=== PATIENT | male | born 1960 | race Caucasian/White ===

== ENCOUNTER 2022-12-23 06:00 | Day surgery (SDC) | payer OTHER ==
[~2022-12-23] VITALS: Ht 182.9 cm; Wt 90.7 kg
[~2022-12-23 06:00] MED LIST: GOCOVRI68.5 MG PO; NEUPRO1 EAC5 TOP; RYTARY ER 23.71 EACH PO; SINEMET 25-1001 EACH PO
[2022-12-23] MEDS ORDERED: TRAMADOL HCL50 MG PO (08:57)
[2022-12-23] MEDS ORDERED: KETO10TA2 PO (08:57)
[2022-12-23] MEDS ORDERED: MIRALAX17 GM PO (08:57)
[2022-12-23] MEDS ORDERED: TYLENOL ARTHRI650 MG PO (08:57)
== END 2022-12-23 11:05 | disposition home or self-care (01) ==
LOC: CIR.AMB 06:00
PROVIDERS: ATTEND Surgery
DX: K42.0 Umbilical hernia with obstruction, without gangrene (principal); Z20.822 Contact with and (suspected) exposure to COVID-19; G20 Parkinson's disease
CPT/HCPCS: 49594; C1781